=== PATIENT | female | born 1975 | race Caucasian/White ===

== ENCOUNTER 2017-06-02 02:44 | Emergency (ER) | payer SELFPAY ==
[2017-06-02] MEDS ORDERED: NS 0.9% 1000 ML* 1,000 ML IV ONE (03:12)
[2017-06-02 03:33] LABS: Hematocrit 39 % (35-47); Hemoglobin 13.2 g/dl (12.0-16.0); Mean Corpuscular HGB Conc 34 g/dl (31-36); Mean Corpuscular Hemoglobin 30 pg (27-31); Mean Corpuscular Volume 89 fL (80-97); Mean Platelet Volume 9 um3 (7.4-10.4); Red Blood Count 4.42 10^6/ul (4.0-5.4); Red Cell Distribution Width 13 % (10.5-15); White Blood Count 5.7 10^3/ul (3.5-10.8)
[2017-06-02 03:43] LABS: Add Diff/Slide Review? Slide Review Added; Comments Flag Yes
[2017-06-02 03:46] LABS: Albumin 4.2 g/dL (3.2-5.2); BUN/Creatinine Ratio 15.1 (8-20); Calcium 9.4 mg/dL (8.6-10.3); EGFR African American 92.6 (>60); Globulin 2.6 g/dL (2-4); Potassium 3.7 mmol/L (3.5-5.0); Total Bilirubin 0.7 mg/dL (0.2-1.0); Total Protein 6.8 g/dL (6.4-8.9)
[2017-06-02 04:19] LABS: TSH (Thyroid Stimulating Horm) 3.1 mcIU/mL (0.34-5.60)
[2017-06-02 06:00] VITALS: BP 120/70
--- NOTE | 2017-06-02 08:01 | ED ---
Imtiaz Quintero Alfonso, scribed for Zeke Berrios MD on 06/02/17 at 0338 . Complex/Multi-Sys Presentation - HPI Summary HPI Summary: This patient is a 41 year old F BIBA to [facility] accompanied by with a chief complaint of a seizure earlier tonight. reports her whole body shanking in bed lying on her stomach with eyes closed, making noise throbbing back and forth. The shaking lasted 10 minutes. Pt rates the pain 1/10 in severity. Symptoms aggravated by stress and alleviated by spontaneous resolution. Pt reports left-sided tingling, headache, CP (pressured), and weakness. Pt denies SOB, vomiting, biting her touch, urinary incontinence, head trauma, slurred speech, and vision changes. Denies any PMHx. - History Of Current Complaint Chief Complaint: EDSeizure Time Seen by Provider: 06/02/17 02:49 Hx Obtained From: Patient, Family/Service Girl - Onset/Duration: Sudden Onset, Lasting Hours - Earlier tonight, Still Present Timing: Constant, Minutes - 10 Severity Currently: None Severity Initially: Moderate Aggravating Factor(s): Recent stress Alleviating Factor(s): Spontaneous resolution Associated Signs And Symptoms: Positive: Other - Pt reports left-sided tingling , headache, CP (pressured), and weakness. Pt denies SOB, vomiting, biting her touch, urinary incontinence, head trauma, slurred speech, weakness, and vision changes. - Allergies/Home Medications Allergies/Adverse Reactions: Allergies Allergy/AdvReac Type Severity Reaction Status Date / Time No Known Allergies Allergy Verified 06/02/17 03:07 PMH/Surg Hx/FS Hx/Imm Hx Sensory History: Denies: Hx Deafness Opthamlomology History: Denies: Hx Legally Blind Infectious Disease History: No Infectious Disease History: Denies: Traveled Outside the [place] in Last 30 Days - Family History Known Family History: Positive: Cardiac Disease - Social History Alcohol Use: None Substance Use Type: Reports: None Smoking Status (MU): Never Smoked Tobacco Review of Systems Positive: Chest Pain Negative: Shortness Of Breath Negative: Vomiting Negative: incontinence Neurological: Other - Positive seizure, left-sided tingling, headache, and weakness; negative biting her touch, head trauma, slurred speech, and vision changes. All Other Systems Reviewed And Are Negative: Yes Physical Exam - Summary Physical Exam Summary: The patient is well-nourished in no acute distress and in no acute pain. No malik signs. No raccoon eyes. The skin is warm and diaphoretic and skin color reflects adequate perfusion. HEENT: The head is normocephalic and atraumatic. The pupils are equal and reactive. The conjunctivae are clear and without drainage. Nares are patent and without drainage. Mouth reveals moist mucous membranes and the throat is without erythema and exudate. The external ears are intact. The ear canals are patent and without drainage. The tympanic membranes are intact. Tongue is midline. Neck is supple with full range of motion and non-tender. There are no carotid bruits. There is no neck vein distension. Respiratory: Chest is non-tender. Lungs are clear to auscultation and breath sounds are symmetrical and equal. Cardiovascular: Heart is regular rate and rhythm. There is no murmur or rub auscultated. There is no peripheral edema and pulses are symmetrical and equal. Abdomen: The abdomen is obese, soft, and non-tender. There are normal bowel sounds heard in all four quadrants and there is no organomegaly palpated. Musculoskeletal: There is no back pain noted. Extremities are non-tender with full range of motion. There is good capillary refill. There is no peripheral edema or calf tenderness elicited. No CVA tenderness. No C-spine tenderness. Symmetrical motor strength. Neurological: Patient is alert and oriented to person, place and time. The patient has symmetrical motor strength in all four extremities. Cranial nerves are grossly intact. Deep tendon reflexes are symmetrical and equal in all four extremities. Cranial nerves 2-12 intact. No facial droop. No pronators drift. Negative Babinskis signs. Psychiatric: The patient has an appropriate affect and does not exhibit any anxiety or depression. Triage Information Reviewed: Yes Vital Signs On Initial Exam: Initial Vitals Temp Pulse Resp BP Pulse Ox 97.3 F 85 16 151/90 100 06/02/17 02:59 06/02/17 02:59 06/02/17 02:59 06/02/17 02:59 06/02/17 02:59 Vital Signs Reviewed: Yes - Sharon Coma Scale Coma Scale Total: 15 Diagnostics - Vital Signs Vital Signs Temp Pulse Resp BP Pulse Ox 06/02/17 02:59 97.3 F 85 16 151/90 100 - Laboratory Lab Results: Lab Results 06/02/17 06/02/17 06/02/17 Range/Units 03:22 03:22 03:22 WBC 5.7 (3.5-10.8) 10^3/ul RBC 4.42 (4.0-5.4) 10^6/ul Hgb 13.2 (12.0-16.0) g/dl Hct 39 (35-47) % MCV 89 (80-97) fL MCH 30 (27-31) pg MCHC 34 (31-36) g/dl RDW 13 (10.5-15) % Plt Count 201 (150-450) 10^3/ul MPV 9 (7.4-10.4) um3 Neut % (Auto) 71.0 (38-83) % Lymph % (Auto) 20.4 L (25-47) % [place] % (Auto) 5.9 (1-9) % Eos % (Auto) 1.5 (0-6) % Baso % (Auto) 1.2 (0-2) % Absolute Neuts (auto) 4.0 (1.5-7.7) 10^3/ul Absolute Lymphs (auto) 1.2 (1.0-4.8) 10^3/ul Absolute Monos (auto) 0.3 (0-0.8) 10^3/ul Absolute Eos (auto) 0.1 (0-0.6) 10^3/ul Absolute Basos (auto) 0.1 (0-0.2) 10^3/ul Absolute Nucleated RBC 0.01 10^3/ul Nucleated RBC % 0.1 INR (Anticoag Therapy) 0.91 (0.89-1.11) Sodium 136 (133-145) mmol/L Potassium 3.7 (3.5-5.0) mmol/L Chloride 103 (101-111) mmol/L Carbon Dioxide 27 (22-32) mmol/L Anion Gap 6 (2-11) mmol/L BUN 13 (6-24) mg/dL Creatinine 0.86 (0.51-0.95) mg/dL Est GFR ( Amer) 92.6 (>60) Est GFR (Non-Af Amer) 72.0 (>60) BUN/Creatinine Ratio 15.1 (8-20) Glucose 105 H (70-100) mg/dL Lactic Acid (0.5-2.0) mmol/L Calcium 9.4 (8.6-10.3) mg/dL Magnesium 2.0 (1.9-2.7) mg/dL Total Bilirubin 0.70 (0.2-1.0) mg/dL AST 21 (13-39) U/L ALT 19 (7-52) U/L Alkaline Phosphatase 30 L (34-104) U/L Total Creatine Kinase 88 (10-223) U/L Troponin I 0.00 (<0.04) ng/mL Total Protein 6.8 (6.4-8.9) g/dL Albumin 4.2 (3.2-5.2) g/dL Globulin 2.6 (2-4) g/dL Albumin/Globulin Ratio 1.6 (1-3) TSH 3.10 (0.34-5.60) mcIU/mL 06/02/17 Range/Units 03:22 WBC (3.5-10.8) 10^3/ul RBC (4.0-5.4) 10^6/ul Hgb (12.0-16.0) g/dl Hct (35-47) % MCV (80-97) fL MCH (27-31) pg MCHC (31-36) g/dl RDW (10.5-15) % Plt Count (150-450) 10^3/ul MPV (7.4-10.4) um3 Neut % (Auto) (38-83) % Lymph % (Auto) (25-47) % [place] % (Auto) (1-9) % Eos % (Auto) (0-6) % Baso % (Auto) (0-2) % Absolute Neuts (auto) (1.5-7.7) 10^3/ul Absolute Lymphs (auto) (1.0-4.8) 10^3/ul Absolute Monos (auto) (0-0.8) 10^3/ul Absolute Eos (auto) (0-0.6) 10^3/ul Absolute Basos (auto) (0-0.2) 10^3/ul Absolute Nucleated RBC 10^3/ul Nucleated RBC % INR (Anticoag Therapy) (0.89-1.11) Sodium (133-145) mmol/L Potassium (3.5-5.0) mmol/L Chloride (101-111) mmol/L Carbon Dioxide (22-32) mmol/L Anion Gap (2-11) mmol/L BUN (6-24) mg/dL Creatinine (0.51-0.95) mg/dL Est GFR ( Amer) (>60) Est GFR (Non-Af Amer) (>60) BUN/Creatinine Ratio (8-20) Glucose (70-100) mg/dL Lactic Acid 2.8 H* (0.5-2.0) mmol/L Calcium (8.6-10.3) mg/dL Magnesium (1.9-2.7) mg/dL Total Bilirubin (0.2-1.0) mg/dL AST (13-39) U/L ALT (7-52) U/L Alkaline Phosphatase (34-104) U/L Total Creatine Kinase (10-223) U/L Troponin I (<0.04) ng/mL Total Protein (6.4-8.9) g/dL Albumin (3.2-5.2) g/dL Globulin (2-4) g/dL Albumin/Globulin Ratio (1-3) TSH (0.34-5.60) mcIU/mL Result Diagrams: 06/02/17 03:22 06/02/17 03:22 Lab Statement: Any lab studies that have been ordered have been reviewed, and results considered in the medical decision making process. - CT Brain CT Interpretation Completed By: Radiologist - Normal head - EKG 0404 Cardiac Rate: NL - BPM 77 EKG Rhythm: Sinus Rhythm EKG Interpretation: normal axis, and no ST elevation. Re-Evaluation - Re-Evaluation First Eval Re-Evaluation Time: 05:10 Comment: Patient reports stress and appears dehydrated. Complex Multi-Symp Course/Dx Assessment/Plan: 41 [facility] by with a chief complaint of a seizure earlier tonight. reports her whole body shanking in bed lying on her stomach with eyes closed, making noise throbbing back and forth. The shaking lasted 10 minutes. Pt rates the pain 1/10 in severity. Symptoms aggravated by stress and alleviated by spontaneous resolution. Pt reports left-sided tingling, headache, CP (pressured), and weakness. Pt denies SOB, vomiting, biting her touch, urinary incontinence, head trauma, slurred speech, and vision changes. CT brain reveals normal head. EKG reveals NSR, normal axis, and no ST elevation. Patient will be discharged with follow up from PCP and Dr. Plunkett (neurologist). Pt is agreeable with this plan. - Diagnoses Differential Diagnoses/HQI/PQRI: Metabolic Abnormality, Other - dehydration, anxiety Provider Diagnoses: Seizure disorder Discharge - Discharge Plan Condition: Stable Disposition: HOME Patient Education Materials: New-Onset Seizure in Adults (ED) Referrals: Cory Plunkett MD [Medical Doctor] - 3 Days Kassi De La Cruz MD [Primary Care Provider] - 7 Days Additional Instructions: Do not operate motor vehicle or heavy machinery until cleared by Dr. Plunkett ( neurologist). Have an EEG preformed. The documentation as recorded by the Imtiaz hensley Alfonso accurately reflects the service I personally performed and the decisions made by me, Zeke Berrios MD.
--- NOTE | 2017-06-02 09:07 | RAD ---
Indication: New onset seizure. Headache. Comparison: No relevant prior exams available [place] [facility]. Technique: Noncontrast CT vertex of skull through foramen magnum. Report: The sulci, ventricles, and basal cisterns are normal for age. [place] matter white matter differentiation is preserved without evidence for edema. No intra or extra axial hemorrhage, mass, or fluid collection detected. Unremarkable visualized orbital contents. Unremarkable calvarium and skull base. Unremarkable scalp. The visualized paranasal sinuses and mastoid air spaces are clear. IMPRESSION: Negative unenhanced head CT.
== END 2017-06-02 06:00 | disposition home or self-care (01) ==
LOC: ED 02:44
DX: G40.909 Epilepsy, unspecified, not intractable, without status epilepticus (principal); R51 Headache
CPT/HCPCS: 36415; 70450; 80053; 82550; 83605; 83735; 84443; 84484; 85025; 85610; 93005